=== PATIENT | male | born 1965 | race Caucasian/White ===

== ENCOUNTER 2025-02-22 07:38 | Emergency (ER) | payer SELFPAY ==
[2025-02-22 07:40] VITALS: BP 159/97; PULSE 77; RESP 20; TEMP 36.7; O2SAT 99
--- NOTE | 2025-02-22 07:40 | ED.EXTPRO ---
HPI - Extremity Problem General Chief complaint: Extremity Injury, Lower Stated complaint: pain right foot and knee and arm Time Seen by Provider: 02/22/25 07:39 Source: patient Mode of arrival: ambulatory Limitations: no limitations History of Present Illness HPI Narrative: this is a 59-year-old male with history of gout presents with some right foot pain and right knee pain it is warm red tender to touch with no fever chills no known injury no chest pain no shortness of breath. Complaint: extremity pain Onset (ago): day(s) Location: right Severity scale (1-10): 6 Quality: aching Related Data Home Medications ?Medication ?Instructions ?Recorded ?Confirmed ?Last Taken ?Type atorvastatin 10 mg tablet (Lipitor) 10 mg PO DAILY 02/22/25 Unknown History atorvastatin 40 mg tablet (Lipitor) 40 mg PO DAILY 02/22/25 Unknown History Allergies Allergy/AdvReac Type Severity Reaction Status Date / Time No Known Allergies Allergy Verified 02/22/25 07:43 Review of Systems Review of Systems: All systems reviewed & are unremarkable except as noted in HPI and below PMFSH Past Medical History Medical History Gout attack Exam Const: General: healthy appearing and no acute distress Nutritional Appearance: well nourished Orientation/consciousness: patient oriented x3 Limitations: no limitations Neck: Neck: normal visual inspection and no lymphadenopathy Chest: Chest palpation & inspection: normal inspection of the chest Resp: Effort & Inspection: normal respiratory effort Auscultation: clear to auscultation bilaterally Cardio: Rate: regular rate Rhythm: regular rhythm GI: GI Palp: Yes Soft to palpation Auscultation: normal bowel sounds Skin: Other: red warm and tender right foot and knee Neuro: General: patient oriented x3 and moves all extremities Extrem: General: edema Course Course Emergency Course: patient with a gouty attack will administer 80mg IM Depo-Medrol. Otherwise will send medication to patient's pharmacy advised follow-up with his primary care physician patient has a history of gout Critical Care Time Critical Care Time Critical Care Time: No Discharge Plan Discharge Clinical Impression: Gout attack Qualifiers: Gout site: foot Gout etiology: unspecified cause Laterality: right Qualified Code(s): M10.9 - Gout, unspecified Patient Disposition: Home Condition: Stable Instructions: Antibiotic Form, Gout (ED) Additional Instructions: advised to take prednisone initially and after completion of prednisone can take indomethacin as needed and follow-up with primary care physician within 1 week further evaluation treatment. Patient Language: Persian Prescriptions: New prednisone 20 mg tablet 20 mg PO DAILY 5 Days Qty: 5 0RF indomethacin 25 mg capsule 25 mg PO TID Qty: 20 0RF Rx Instructions: administer with food or milk No Action atorvastatin [Lipitor] 40 mg tablet 40 mg PO DAILY atorvastatin [Lipitor] 10 mg tablet 10 mg PO DAILY Follow-up/Referrals: UNKNOWN,DOCTOR [Primary Care Provider] - Time of Disposition: 07:45
[2025-02-22] MEDS: methylPREDNISolone ACETATE 40 MG/ML VIAL 80 MG IM (07:48)
--- OUTSIDE RECORDS SUMMARY | 2025-02-22 08:00 | XMS_ITS | Continuity of Care Document ---
Author Organization [facility] Address [address] [place], [address] Phone Care Team Providers Care Health Careers Instructor Name Role Phone Alan Rogers APRN Unavailable Unavailab le Allergies, Adverse Reactions, Alerts Substance Reaction Status Criticality No Known Allergies Active No Inform ation Medications Medication Instructions Dosage Effective Dates (start - stop) Status Comments lisinopril 20 mg tablet take 1 tablet by oral route every day 20 MG - Active as rx by marianne roberts atenolol 50 mg tablet TAKE 1 TABLET BY MOUTH ONCE DAILY FOR BLOOD PRESSURE - Active atorvastatin 10 mg tablet TAKE 1 TABLET BY MOUTH ONCE DAILY AT BEDTIME FOR CHOLESTEROL - Active hydroxyzine HCl 25 mg tablet take 1 tablet by oral route 2 times every day as needed 25 MG - Active Procedures Procedure Date ROUTINE VENIPUNCTURE GENERAL HEALTH PANEL LIPID PANEL ASSAY OF PSA, TOTAL ASSAY OF BLOOD/URIC ACID GLYCATED HEMOGLOBIN TEST PREV VISIT, EST, AGE 40-64 BODY MASS INDEX DOCD OFFICE/OUTPATIENT VISIT, EST ROUTINE VENIPUNCTURE COMPLETE CBC W/AUTO DIFF WBC COMPREHEN METABOLIC PANEL LIPID PANEL GLYCATED HEMOGLOBIN TEST BODY MASS INDEX DOCD OFFICE/OUTPATIENT VISIT, EST OFFICE/OUTPATIENT VISIT, EST ROUTINE VENIPUNCTURE LIPID PANEL COMPLETE CBC W/AUTO DIFF WBC COMPREHEN METABOLIC PANEL ROUTINE VENIPUNCTURE COMPLETE CBC W/AUTO DIFF WBC COMPREHEN METABOLIC PANEL LIPID PANEL OFFICE/OUTPATIENT VISIT, EST MICRO ALBUMIN CREATININE UA OFFICE/OUTPATIENT VISIT, EST Social (BH No Charge) ROUTINE VENIPUNCTURE ASSAY OF PSA, TOTAL COMPLETE CBC W/AUTO DIFF WBC COMPREHEN METABOLIC PANEL ACUTE HEPATITIS PANEL LIPID PANEL ASSAY THYROID STIM HORMONE OFFICE/OUTPATIENT VISIT, EST OFFICE/OUTPATIENT VISIT, EST Advance Directives Directive Yes / No Effective Date File Name No Information Encounters Encounter Description Practice Location Reason(s) For Visit Diagnoses Date Provider Providers Copied on Encounter [facility], [address], [place], [id number], [place] tel:[phone] [facility] No Information 2 Sue Phillips. [address] [place], [address], [place]. tel:[phone] PREV VISIT, EST, AGE 40-64 [facility], [address], [place], [id number], [place] tel:[phone] [facility] KARIME/WELLNESS/ MED REFILL/RASH (chief complaint) Encntr for general adult medical exam w/o abnormal findingsBody mass index [BMI] 31.0-31.9, adultEssentia l (primary) hypertensionH yperlipidemia Anxiety disorder, unspecifiedEn counter for screening for Ca of colonEncounte r for screening for Ca of prostateGoutI mpaired fasting glucoseTinea corporis 2 Sue Phillips. [address] [place], [address], [place]. tel:[phone] OFFICE/OUTPA TIENT VISIT, [facility], [address], [place], [id number], [place] tel:[phone] [facility] Follow Up of Hypertension (chief complaint)Fol low Up of Hyperlipidemi a (chief complaint)Fol low Up of Anxiety (chief complaint) Essential (primary) hypertensionH yperlipidemia Elevated fasting glucoseBody mass index (BMI) 32.0-32.9, adultAbnormal results of liver function studiesAnxiet y disorder, unspecified 0 9 Gilberto Stockton. [address] [facility], [place], [place], [id number], [place]. tel: [phone] OFFICE/OUTPA TIENT VISIT, [facility], [address], [place], [id number], [place] tel:[phone] [facility] Follow Up of Hypertension (chief complaint)Fol low Up of Hyperlipidemi a (chief complaint) Essential (primary) hypertensionH yperlipidemia Body mass index (BMI) 35.0-35.9, adult 8 Gilberto Stockton. [address] [facility] [place], [place], [id number], [place]. tel: [phone] OFFICE/OUTPA TIENT VISIT, [facility], [address], [place], [id number], [place] tel:[phone] [facility] Follow Up of Hypertension (chief complaint)Fol low Up of Hyperlipidemi a (chief complaint) Essential (primary) hypertensionH yperlipidemia Body mass index (BMI) 32.0-32.9, adult 8 Lincolnsara Stockton. [address] [facility] [place], [place], [id number], [place]. tel: [phone] [facility], [address], [place], [id number], [place] tel:[phone] [facility] Abnormal results of liver function studies 7 Jonnie Odell. [address] [place], [address], [place]. tel:[phone] OFFICE/OUTPA TIENT VISIT, [facility], [address] [place], , [id number], [place] tel:[phone] [facility] Essential (primary) hypertensionE levated fasting glucoseOther hyperlipidemi aAbnormal results of liver function studies 7 Jonnie Odell. [address] [place], , [address], [place]. tel:[phone] OFFICE/OUTPA TIENT VISIT, [facility], [address] [place], , [id number], [place] tel:[phone] [facility] Abnormal results of liver function studiesPure hypercholeste rolemiaEssent ial (primary) hypertensionB ni mass index (BMI) 32.0-32.9, adultElevated fasting glucose Jan- 6 Jonnie Elias [address] [place], [address], [place]. tel:[phone] [facility], [address] [place], [place], [id number], [place] tel:[phone] [facility] Counseling Sep-0 5 Zac Barrera. [address] [facility], [place], [address], [place]. tel: [phone] [facility], [address] [place], [place], [id number], [place] tel:[phone] [facility] No Information Sep-0 5 Jonnie Elias [address] [place], [address], [place]. tel:[phone] OFFICE/OUTPA TIENT VISIT, [facility], [address] [place], , [id number], [place] tel:[phone] [facility] HTNElevated liver functionHigh cholesterolPr ostate Ca screening 5 Jonnie Elias [address] [place], , [address], [place]. tel:[phone] OFFICE/OUTPA TIENT VISIT, [facility], [address], [place], [place], [id number], [place] tel:[phone] [facility] [place] [facility] HTN 4 Lelo Hunter. [address], [place], , [id number], [place]. tel:[phone] Family History Family Member Type Diagnosis Age At Onset Problem (finding) Family history of hyper tension Payers Payer name Insurance type Covered alliance party ID Authoriza tion(s) No Information Social History Type Description Quantity Date Captured Comments Alcohol Use Details Unknown Caffeine Use Details Unknown Tobacco Use Status No Information Smoking Status No Information Sex Male Sexual Orientation Straight or heterosexual Gender Identity Male Chief Complaint And Reason For Visit No Information Reason For Referral Reason For Referral No Information Plan Of Treatment Date Type Action Status Goal Dietary manageme nt education, guidance, and counseling completed Goal Tobacco cessation counseling completed Goal Lifestyle education regardin g diet completed Goal Tobacco cessation counseling completed Goal Lifestyle education regardin g diet completed Goal Lifestyle education regardin g diet completed Goal Tobacco cessation counseling completed Patient Education DASH Diet: After Your V isit completed Patient Education High Blood Pressure: Af ter Your Visit completed Future Order: Lab Order FIT FOBT ([id number]), Scheduled for: Ordered History Of Present Illness Encounter Date Complaint History Of Prese nt Illness KARIME/WELLNESS/MED REFILL/RASH Maite ramirez presents to the clinic today as a KARIME from Zoraida Maciel NP for management of chronic conditions, med refill, wellness and rash to leg. Rash itchy - reports placed triple-antibiotic ointment on it and covered with bandage and when he removed bandage he had a different rash where the adhesive was. 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 Risk factors include family history HTN, gout or CAD, heavy ETOH consumption, high salt intake, inactive lifestyle, male gender and obesity. Pertinent negatives include chest pain, dyspnea, headache and irregular heartbeat/palpitations. Additional information: +compliance with meds as directed, meds refilled as requested. no issues/concerns voiced today Follow Up of Hyperlipidemia The hyperlipidemia is improving. Risk factors include age over 50, family history of DM, family history of gout, family history of HTN, obesity, poor diet and sedentary life style. The patient is adhering to medication and follow-up for their hyperlipidemia. The patient is not adhering to diet and exercise for their hyperlipidemia. Hyperlipidemia management includes bile acid sequestrants. Pertinent negatives include chest pain, dyspnea and palpitations. Additional information: will d/c welchol and add moderate intensity statin has triglycerides have improved significantly. Follow Up of Anxiety This is an initial visit. The first episode occurred in 2018. Related symptoms are fairly controlled. The patient reports functioning as somewhat difficult. The patient presents with anxious/fearful thoughts and excessive worry but denies thoughts of or suicide. The patient's risk factors exclude history of depression and history of suicidal attempts. The self denies any aggravating factors. The patient's relieving factors are less coffee. The Follow Up of Anxiety is associated with irritability. Follow Up of Hyperlipidemia The hyperlipidemia is improving. Risk factors include age over 50, family history of DM, family history of gout, family history of HTN, obesity, poor diet and sedentary life style. The patient is adhering to medication and follow-up for their hyperlipidemia. The patient is not adhering to diet and exercise for their hyperlipidemia. Hyperlipidemia management includes bile acid sequestrants. Pertinent negatives include chest pain, dyspnea and palpitations. Additional information: labs reviewed. med refilled as requested, +compliance with meds as directed voiced. Follow Up of Hypertension Risk f actors include family history HTN, gout or CAD, heavy ETOH consumption, high salt intake, inactive lifestyle, male gender and obesity. Pertinent negatives include chest pain, dyspnea, headache, irregular heartbeat/palpitations and visual disturbances. Additional information: states he has not taken medication today. med refilled as requested. states very poor diet lately Follow Up of Hyperlipidemia Risk factors include age over 50, family history of DM, family history of gout, family history of HTN, obesity, poor diet and sedentary life style. The patient is not adhering to medication, follow-up, diet and exercise for their hyperlipidemia. Hyperlipidemia management includes bile acid sequestrants. Pertinent negatives include chest pain, dyspnea and palpitations. Additional information: pt states he has not been taking medication, states it makes his side hurt. req a change if possible. no labs since 2017, will update labs today, pt is fasting. Follow Up of Hypertension It is currently stable. Risk factors include family history HTN, gout or CAD, heavy ETOH consumption, high salt intake, inactive lifestyle, male gender and obesity. Pertinent negatives include chest pain, dyspnea, headache, irregular heartbeat/palpitations and visual disturbances. Additional information: req med refill. +control of b/p noted today at ov. Functional Status Date Functional Assessmen t No Information Instructions Date Instruction Additional Infor therese clotrimazole/betamet hasone as directedavoid occlusive dressings f/u if not improving Related to Tinea corporis follow low glycemic index diet walk on most dayslose weight Related to Impaired fasting glucose Purine restricted di et hydrate well will check uric acid - will call with results Related to Gout vistaril as neededDO NOT TAKE WHILE DRIVING f/u as needed Related to Anxiety disorder, unspecified Low sodium, high fib er diet, regular exercise as tolerated.Monitor your blood pressure at home or your local pharmacy. Call or schedule appointment if your blood pressure remains greater than 130/80.CALL 911 if you have any symptoms of heart attack or stroke such as chest pain, shortness of breath, facial drooping, slurred speech or one-sided weakness/numbness.RETURN TO CLINIC in 3 months for followup visit. Related to Essential (primary) hypertension Continue Therapeutic Lifestyle Changes:Increase Monounsaturated Fatty Acid/Polyunsaturated fatty acid foods: avocado, (salmon, mackerel, de la cruz), flax/ryan seeds, almonds/walnutsWalk 150min/wk of moderate intensity (no less than 3mpH)No more than three days between days of working outDecrease saturated fat and cholesterol. Related to Hyperlipidemia Giving encouragement to exercise Related to Body mass index [BMI] 31.0-31.9, adult Dietary management e ducation, guidance, and counseling Related to Body mass index [BMI] 31.0-31.9, adult Continue current med ication as prescribed Low cholesterol, high fiber diet, regular exercise as toleratedAvoid foods and drinks with a lot of sugar and carbohydrates, these include white bread, fruit juice, soda and sweetsAvoid red meat, butter, fried foods, cheese oils, and nuts.Get regular exercise Related to Hyperlipidemia Continue current med ications as prescribed Use a low sodium, high fiber diet, regular exercise as toleratedMonitor your blood pressure at home or local pharmacyPLEASE RETURN TO CLINIC FOR CONSISTENT B/P >130/80PLEASE REPORT TO NEAREST EMERGENCY ROOM FOR SUDDEN CHEST PAIN AND/OR SHORTNESS OF BREATH Related to Essential (primary) hypertension Make healthy food ch oices Eat lots of fruits, vegetables, whole grains, and low-fat dairy products. Limit the amount of meat and fried or fatty foods that you eat.Be active Walk, garden, or do something active for 30 minutes or more on most days of the week.Lose weight Being overweight increases the risk of many health problems.Avoid alcohol Alcohol can increase blood sugar and blood pressure. Related to Elevated fasting glucose Increase activity. Related to Es sential (primary) hypertension Lifestyle education regarding di et Related to Body mass index (BMI) 32.0-32.9, adult Take medication as ordered Relat ed to Anxiety disorder, unspecified If suicidal or homic idal thoughts occur then go to ER EULALIO Related to Anxiety disorder, unspecified Follow a low sodium diet. Relate d to Essential (primary) hypertension Continue current med ication as prescribed Low cholesterol, high fiber diet, regular exercise as toleratedAvoid foods and drinks with a lot of sugar and carbohydrates, these include white bread, fruit juice, soda and sweetsAvoid red meat, butter, fried foods, cheese oils, and nuts.Get regular exercise Related to Hyperlipidemia Continue current med ications as prescribed Use a low sodium, high fiber diet, regular exercise as toleratedMonitor your blood pressure at home or local pharmacyPLEASE RETURN TO CLINIC FOR CONSISTENT B/P >130/80PLEASE REPORT TO NEAREST EMERGENCY ROOM FOR SUDDEN CHEST PAIN AND/OR SHORTNESS OF BREATH Related to Essential (primary) hypertension Follow a low sodium diet. Relate d to Essential (primary) hypertension Lifestyle education regarding di et Related to Body mass index (BMI) 35.0-35.9, adult Increase activity. Related to Es sential (primary) hypertension Low cholesterol, hig h fiber diet, regular exercise as toleratedAvoid foods and drinks with a lot of sugar and carbohydrates, these include white bread, fruit juice, soda and sweetsAvoid red meat, butter, fried foods, cheese oils, and nuts.Get regular exercise Related to Hyperlipidemia Continue current med ications as prescribed Use a low sodium, high fiber diet, regular exercise as toleratedMonitor your blood pressure at home or local pharmacyPLEASE RETURN TO CLINIC FOR CONSISTENT B/P >130/80PLEASE REPORT TO NEAREST EMERGENCY ROOM FOR SUDDEN CHEST PAIN AND/OR SHORTNESS OF BREATH Related to Essential (primary) hypertension Lifestyle education regarding di et Related to Body mass index (BMI) 32.0-32.9, adult Assessments Type Assessment Date No Information Patient Care Teams Name Effective Dates (start - stop) Status Members No Information
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
--- OUTSIDE RECORDS SUMMARY | 2025-02-22 08:00 | XMS_ITS | Clinical Summary ---
Author Organization [facility] Address [address] [place] [address] Care Team Providers Care Cdl Driver Name Role Phone Unavailable Primary Care Provider Unavailabl e Allergies No known active allergies Medications atenoloL (TENORMIN) 50 MG tablet 50 mg 09/20/2021 Active lisinopriL (ZESTRIL) 10 MG tablet 10 mg 09/20/2021 Active predniSONE (DELTASONE) 20 MG tabletIndication s:Acute gout of right knee, unspecified cause Take one tablet (20 mg total) by mouth in the morning. 5 tablet 09/23/2024 Active naproxen (NAPROSYN) 500 MG tabletIndication s:Acute pain of right knee Take one tablet (500 mg total) by mouth in the morning and one tablet (500 mg total) in the evening. Take with meals. 20 tablet 09/23/2024 Active Social History Tobacco Use Types Packs/Day Years Used Date Smoking Tobacco: Never Smokeless Tobacco: Never Tobacco Cessation:Counseling Given: Not Answered Alcohol Use Standard Drinks/Week Comments Never 0 (1 standard drink = 0.6 oz pur e alcohol) Sex and Gender Information Value Date Recorded Sex Assigned at Not on file Legal Sex Male 10:26 PM CDT Gender Identity Not on file Sexual Orientation Not on file Last Filed Vital Signs Vital Sign Reading Time Taken Comments Blood Pressure 136/81 09/23/2024 6:04 AM CASH PERSON Pulse 84 09/23/2024 6:04 AM CASH PERSON Temperature 36.6 C (97.9 F) 09/23/2024 6:04 AM CASH PERSON Respiratory Rate 18 09/23/2024 6:04 AM CASH PERSON Oxygen Saturation 97% 09/23/2024 6:04 AM CASH PERSON Inhaled Oxygen Concentration - - Weight - - Height - - Body Mass Index - - Plan of Treatment Not on file
== END 2025-02-22 08:03 | disposition home or self-care (01) ==
PROVIDERS: Emergency Provider Emergency Medicine; PCP Internal Medicine
DX: M10.9 Gout, unspecified (principal); Z79.899 Other long term (current) drug therapy
CPT/HCPCS: 96372; 99283; J1010